=== PATIENT | female | born 1980 | race Caucasian/White ===

== ENCOUNTER 2019-04-02 17:14 | Emergency (ER) | payer SELFPAY ==
[2019-04-02] MEDS ORDERED: KETOROLAC TROMETHAMINE 60 MG/2 ML SDV IM ONE (17:31)
[2019-04-02] MEDS ORDERED: ONDANSETRON 4 MG TAB.RAPDIS PO ONE (17:31)
--- NOTE | 2019-04-02 17:33 | ER Document Report ---
ED Medical Screen (RME) - General Chief Complaint: Abdominal Pain Stated Complaint: ABDOMINAL PAIN,NAUSEA Time Seen by Provider: 04/02/19 17:28 Primary Care Provider: JULIANNA LANDIN [Primary Care Provider] - Follow up as needed Mode of Arrival: Ambulatory Information source: Patient Notes: 38-year-old female with history of diverticulitis presents emergency department with severe abdominal pain that started earlier today. Took ibuprofen without relief of symptoms. Also took a gas-x but that did not help either. Reports last bowel movement earlier today. Denies fever vomiting diarrhea. Denies pain with void reports her last flare with diverticulitis was over a year ago. I have greeted and performed a rapid initial assessment of this patient. A comprehensive ED assessment and evaluation of the patient, analysis of test results and completion of the medical decision making process will be conducted by additional ED providers. Dictation of this chart was performed using voice recognition software; therefore, there may be some unintended grammatical errors. TRAVEL OUTSIDE OF THE [place] IN LAST 30 DAYS: No - Related Data Allergies/Adverse Reactions: No Known Allergies Allergy (Verified 04/02/19 17:28) Past Medical History - Social History Chew tobacco use (# tins/day): No Frequency of alcohol use: None Drug Abuse: None Physical Exam - Vital signs Vitals: Temp Pulse Resp BP Pulse Ox 97.8 F 93 20 150/92 H 100 04/02/19 17:23 04/02/19 17:23 04/02/19 17:23 04/02/19 17:23 04/02/19 17:23 Course - Vital Signs Vital signs: Temp Pulse Resp BP Pulse Ox 97.8 F 93 20 150/92 H 100 04/02/19 17:23 04/02/19 17:23 04/02/19 17:23 04/02/19 17:23 04/02/19 17:23 Doctor's Discharge - Discharge Referrals: JULIANNA LANDIN [Primary Care Provider] - Follow up as needed
[2019-04-02 18:07] LABS: ABSOLUTE LYMPHOCYTES (AUTO) 1.6 10^3/uL (0.5-4.7); ABSOLUTE MONOCYTES (AUTO) 0.6 10^3/uL (0.1-1.4); BASOPHILS % (AUTO) 0.3 % (0-2); EOSINOPHILS % (AUTO) 0.3 % (0-6); HEMATOCRIT 47.1 % (36.0-47.0); HEMOGLOBIN 15.9 g/dL (12.0-15.5); LYMPHOCYTES % (AUTO) 13.3 % (13-45); MEAN CORPUSCULAR HEMOGLOBIN 31.7 pg (27.0-33.4); MEAN CORPUSCULAR HGB CONC 33.7 g/dL (32.0-36.0); MEAN CORPUSCULAR VOLUME 94 fl (80-97); MONOCYTES % (AUTO) 5.2 % (3-13); PLATELET COUNT 279 10^3/uL (150-450); RED CELL DISTRIBUTION WIDTH 13.4 % (11.5-14.0); SEGMENTED NEUTROPHILS % (AUTO) 80.9 % (42-78); TOTAL CELLS COUNTED % (AUTO) 100 %; WHITE BLOOD COUNT 12.3 10^3/uL (4.0-10.5)
[2019-04-02 18:25] LABS: APPEARANCE,URINE SLIGHTLY-CLOUDY; BILIRUBIN,URINE NEGATIVE (NEGATIVE); COLOR,URINE YELLOW; GLUCOSE, URINE NEGATIVE (NEGATIVE); KETONES,URINE NEGATIVE (NEGATIVE); LEUKOCYTE ESTERASE,URINE MODERATE (NEGATIVE); NITRITE,URINE NEGATIVE (NEGATIVE); PROTEIN,URINE NEGATIVE (NEGATIVE)
[2019-04-02 18:28] LABS: ALBUMIN 4.7 g/dL (3.5-5.0); ALKALINE PHOSPHATASE 81 U/L (38-126); ANION GAP 12 (5-19); ASPARTATE AMINO TRANSFERASE 29 U/L (14-36); BILIRUBIN,DIRECT 0.1 mg/dL (0.0-0.4); BILIRUBIN,TOTAL 0.5 mg/dL (0.2-1.3); BLOOD UREA NITROGEN 10 mg/dL (7-20); CALCIUM 9.9 mg/dL (8.4-10.2); CARBON DIOXIDE 28 mmol/L (22-30); CHLORIDE 104 mmol/L (98-107); GLUCOSE 112 mg/dL (75-110); POTASSIUM 4.9 mmol/L (3.6-5.0); TOTAL PROTEIN 8.2 g/dL (6.3-8.2)
[2019-04-02] MEDS ORDERED: NORMAL SALINE 1000 ML 1,000 ML IV ONE ×2 (19:21→22:41)
[2019-04-02] MEDS ORDERED: ONDANSETRON HCL INJ/PF 4 MG/2 ML SDV IV ONE (19:21)
[2019-04-02] MEDS ORDERED: MORPHINE SULFATE 10 MG/ML INJ IV ONE (19:21)
--- NOTE | 2019-04-02 19:23 | ER Document Report ---
ED GI/ - General Chief Complaint: Abdominal Pain Stated Complaint: ABDOMINAL PAIN,NAUSEA Time Seen by Provider: 04/02/19 17:28 Primary Care Provider: MORENO BENITEZ MD [ACTIVE STAFF] - Follow up as needed Mode of Arrival: Ambulatory Information source: Patient Notes: 38-year-old female with history of diverticulitis presents emergency department with severe mid-abdominal pain that started yesterday with worsening today. Took ibuprofen without relief of symptoms. Also took a gas-x but that did not help either. Reports last bowel movement earlier today. Denies fever vomiting diarrhea. Denies pain with void reports her last flare with diverticulitis was over a year ago. TRAVEL OUTSIDE OF THE [place] IN LAST 30 DAYS: No - Related Data Allergies/Adverse Reactions: No Known Allergies Allergy (Verified 04/02/19 17:28) Past Medical History - General Information source: Patient - Social History Smoking Status: Never Smoker Chew tobacco use (# tins/day): No Frequency of alcohol use: None Drug Abuse: None Family History: Reviewed & Not Pertinent Patient has suicidal ideation: No Patient has homicidal ideation: No GI Medical History: Reports: Hx Diverticulitis Past Surgical History: Reports: Hx Bowel Surgery - colostomy, hernia repari, Hx Section - x3, Hx Cholecystectomy, Hx Hysterectomy - Immunizations Immunizations up to date: Yes Review of Systems - Review of Systems Constitutional: No symptoms reported EENT: No symptoms reported Cardiovascular: No symptoms reported Respiratory: No symptoms reported Gastrointestinal: Abdominal pain, Nausea Genitourinary: No symptoms reported Female Genitourinary: No symptoms reported Musculoskeletal: No symptoms reported Skin: No symptoms reported Hematologic/Lymphatic: No symptoms reported Neurological/Psychological: No symptoms reported Physical Exam - Vital signs Vitals: Temp Pulse Resp BP Pulse Ox 97.8 F 93 20 150/92 H 100 04/02/19 17:23 04/02/19 17:23 04/02/19 17:23 04/02/19 17:23 04/02/19 17:23 - Notes Notes: PHYSICAL EXAMINATION: GENERAL: Well-appearing, well-nourished and in no acute distress. HEAD: Atraumatic, normocephalic. EYES: Pupils equal round and reactive to light, extraocular movements intact, conjunctiva are normal. ENT: Nares patent, oropharynx clear without exudates. Moist mucous membranes. NECK: Normal range of motion, supple without lymphadenopathy LUNGS: Breath sounds clear to auscultation bilaterally and equal. No wheezes rales or rhonchi. HEART: Regular rate and rhythm without murmurs ABDOMEN: Large round abdomen with multiple incisional scars including a midline incision. Palpable hernia. No guarding, no rebound. No masses appreciated. Female : No CVA tenderness. Musculoskeletal: Normal range of motion, no pitting or edema. No cyanosis. NEUROLOGICAL: Cranial nerves grossly intact. Normal speech, normal gait. Normal sensory, motor exams PSYCH: Normal mood, normal affect. SKIN: Warm, Dry, normal turgor, no rashes or lesions noted. Course - Re-evaluation Re-evalutation: Laboratory 04/02/19 04/02/19 04/02/19 17:41 17:41 17:41 WBC 12.3 H RBC 5.00 Hgb 15.9 H Hct 47.1 H MCV 94 MCH 31.7 MCHC 33.7 RDW 13.4 Plt Count 279 Lymph % (Auto) 13.3 Evans % (Auto) 5.2 Eos % (Auto) 0.3 Baso % (Auto) 0.3 Absolute Neuts (auto) 10.0 H Absolute Lymphs (auto) 1.6 Absolute Monos (auto) 0.6 Absolute Eos (auto) 0.0 Absolute Basos (auto) 0.0 Seg Neutrophils % 80.9 H Sodium 143.5 Potassium 4.9 Chloride 104 Carbon Dioxide 28 Anion Gap 12 BUN 10 Creatinine 0.92 Est GFR ( Amer) > 60 Est GFR (MDRD) Non-Af > 60 Glucose 112 H Calcium 9.9 Total Bilirubin 0.5 Direct Bilirubin 0.1 Neonat Total Bilirubin Not Reportable Neonat Direct Bilirubin Not Reportable Neonat Indirect Bili Not Reportable AST 29 ALT 31 Alkaline Phosphatase 81 Total Protein 8.2 Albumin 4.7 Urine Color YELLOW Urine Appearance SLIGHTLY-CLOUDY Urine pH 5.0 Ur Specific [place] 1.020 Urine Protein NEGATIVE Urine Glucose (UA) NEGATIVE Urine Ketones NEGATIVE Urine Blood SMALL H Urine Nitrite NEGATIVE Urine Bilirubin NEGATIVE Urine Urobilinogen 2.0 H Ur Leukocyte Esterase MODERATE H Urine WBC (Auto) 10 Urine RBC (Auto) 7 Urine Bacteria (Auto) TRACE Squamous Epi Cells Auto 1 Urine Mucus (Auto) RARE Urine Ascorbic Acid NEGATIVE 04/02/19 23:40 Dr. Figueroa has come to the bedside and personally evaluated the patient. Patient continues to appear well, nontoxic. Patient will be discharged home with strict ED return precautions, she will follow-up with the surgical clinic so that they can plan surgical repair of patient's hernia. - Vital Signs Vital signs: Temp Pulse Resp BP Pulse Ox 97.8 F 78 20 153/102 H 99 04/02/19 23:39 04/02/19 23:39 04/02/19 23:39 04/02/19 23:39 04/02/19 23:39 - Laboratory Result Diagrams: 04/02/19 17:41 04/02/19 17:41 Laboratory results interpreted by me: 04/02/19 04/02/19 04/02/19 17:41 17:41 17:41 WBC 12.3 H Hgb 15.9 H Hct 47.1 H Absolute Neuts (auto) 10.0 H Seg Neutrophils % 80.9 H Glucose 112 H Urine Blood SMALL H Urine Urobilinogen 2.0 H Ur Leukocyte Esterase MODERATE H Discharge - Discharge Clinical Impression: Ventral hernia Qualifiers: Obstruction and gangrene presence: without obstruction or gangrene Qualified Code(s): K43.9 - Ventral hernia without obstruction or gangrene Condition: Stable Disposition: HOME, SELF-CARE Additional Instructions: Please take medication as prescribed for nausea. It should cost around $10 with the coupon I have given you. Do your best to not strain. Eating a diet high in fiber. Call the surgical clinic Thursday to schedule an appointment, let them know you are in the emergency room. Return to the emergency department with new or worsening symptoms to include worsening abdominal pain, development of fever, persistent vomiting or any other symptoms concerning to you. Prescriptions: Promethazine HCl [Phenergan 25 mg Tablet] 1 - 2 tab PO Q6H PRN #15 tablet PRN Reason: Forms: Return to Work, Special Work Note Referrals: MORENO BENITEZ MD [ACTIVE STAFF] - Follow up as needed
--- NOTE | 2019-04-02 22:37 | RADIOLOGY REPORT (SQ) ---
EXAM DESCRIPTION: [facility]: CT ABDOMEN PELVIS WITH IV CONTRAST CLINICAL HISTORY: 38 years Female; abd pain/leukocytosis TECHNIQUE: CT of the abdomen and pelvis using intravenous contrast. All CT scans at this facility use dose modulation, iterative reconstruction, and/or weight based dosing when appropriate to reduce radiation dose to as low as reasonably achievable. COMPARISON: None. FINDINGS: Abdomen: Liver:No focal lesions. No intrahepatic ductal distention. Gallbladder: Surgically absent Pancreas:Within normal limits Spleen:Within normal limits Right kidney:No hydronephrosis. No focal lesion. Left kidney:No hydronephrosis. No focal lesion. Adrenal glands:Within normal limits Vascular structures:Within normal limits Pelvis: Small bowel: Multiple distended segments. Transition point is only ventral hernia to the left of midline at the level the umbilicus. The defect in the abdominal wall is 3.3 cm diameter. A segment of small bowel protrudes through the defect. There is no bowel wall thickening or enhancement. Distal small bowel is normal in caliber. Appendix:Within normal limits Colon:No distention or acute pericolonic edema. No free intraperitoneal fluid or air. Bones: No acute bone findings. Bladder: Unremarkable. Uterus is not identified. No significant adnexal enlargement. No pelvic adenopathy. IMPRESSION: 1. Small bowel obstruction due to incarcerated ventral hernia. 2. No perforation or abscess. 3. Previous cholecystectomy and hysterectomy.
[2019-04-02] MEDS ORDERED: PIPERACILLIN/TAZOBACTAM 3.375 GM VIAL IV ONE (22:46)
[2019-04-02 23:39] VITALS: BP 153/102
[2019-04-02] MEDS ORDERED: ONDANSETRON ODT 4 MG TAB (6 TAB/ER DISP) ONE (23:40)
[2019-04-02] MEDS ORDERED: ONDANSETRON ODT 4 MG TAB (6 TAB/ER DISP) PO PRN (23:40)
--- NOTE | 2019-04-03 00:05 | PDOC CONSULTATION ---
Consultation Consult Date: 04/02/19 Provider Consulted: GALO COLON Consult reason:: abdominal pain History of Present Illness Patient complains of: abdominal pain History of Present Illness: CHRIS ESPAÑA is a 38 year old female Presents the emergency department via ground rescue complaining of abdominal pain nausea no vomiting. Pain is a similar episode she is at the past but due to refractory nature after trying Gas-X and other [id number] medications, she came to the emergency department for further evaluation. She was found to have some abdominal tenderness and had a CT scan of the abdomen and pelvis with oral contrast which showed suggestive of incarcerated small bowel with small bowel obstruction. Surgery was consulted. Patient has a history of exploratory laparotomy, sigmoid colectomy, colostomy, colostomy takedown, and subsequent abdominal wall hernia repair without mesh from [id number] in [facility]. Last operation was in 2013. Has had intermittent abdominal pain since that time. Past Medical History GI Medical History: Reports: Diverticulitis Past Surgical History Past Surgical History: Colon resection, and colostomy, with reversal, [place], [place]; Hx of hernia repair, reportedly without mesh Past Surgical History: Reports: Section - x3, Cholecystectomy, Hysterectomy Social History Information Source: Patient Smoking Status: Never Smoker Electronic Cigarette use?: No Frequency of Alcohol Use: Rare Hx Recreational Drug Use: No Family History Family History: None, Reviewed & Not Pertinent Parental Family History Reviewed: No Children Family History Reviewed: No Sibling(s) Family History Reviewed.: No Medication/Allergy Home Medications: Promethazine HCl [Phenergan 25 mg Tablet] 1 - 2 tab PO Q6H PRN #15 tablet 04/02/19 Allergies/Adverse Reactions: No Known Allergies Allergy (Verified 04/02/19 17:28) Review of Systems Constitutional: PRESENT: as per HPI Eyes: ABSENT: visual disturbances Ears: ABSENT: hearing changes Cardiovascular: ABSENT: chest pain, dyspnea on exertion, edema, orthropnea, palpitations Respiratory: ABSENT: cough, hemoptysis Gastrointestinal: PRESENT: as per HPI, nausea Genitourinary: ABSENT: dysuria, hematuria Musculoskeletal: ABSENT: joint swelling Integumentary: ABSENT: rash, wounds Neurological: ABSENT: abnormal gait, abnormal speech, confusion, dizziness, focal weakness, syncope Psychiatric: ABSENT: anxiety, depression, homidical ideation, suicidal ideation Endocrine: ABSENT: cold intolerance, heat intolerance, polydipsia, polyuria Hematologic/Lymphatic: ABSENT: easy bleeding, easy bruising Physical Exam Vital Signs: Temp Pulse Resp BP Pulse Ox 97.8 F 93 20 150/92 H 100 04/02/19 17:23 04/02/19 17:23 04/02/19 17:23 04/02/19 17:23 04/02/19 17:23 Intake & Output 04/01/19 04/02/19 04/03/19 06:59 06:59 06:59 Intake Total 1000 Balance 1000 Weight 125.2 kg General appearance: PRESENT: no acute distress Head exam: PRESENT: normocephalic Eye exam: PRESENT: EOMI Mouth exam: PRESENT: dry mucosa Neck exam: PRESENT: full ROM Respiratory exam: PRESENT: clear to auscultation linda Cardiovascular exam: PRESENT: RRR Pulses: PRESENT: normal carotid pulses, normal radial pulses, normal femoral pulses, normal dorsalis pedis pul GI/Abdominal exam: PRESENT: other - Or significant tenderness abdomen examined well-healed scars consistent with previous surgery. There is eventration of the abdominal wall, localized area of bulging to the left and just above the umbilicus, unable to reduce chronically incarcerated small bowel ; no threatened skin or tenderness Rectal exam: PRESENT: deferred Extremities exam: PRESENT: full ROM Musculoskeletal exam: PRESENT: full ROM Neurological exam: PRESENT: altered, awake, oriented to person, oriented to time, oriented to situation Psychiatric exam: PRESENT: appropriate affect - scars, with intact skin; extensive ventral wall herniation, with incomplete reduction, likely chronically incarcerated; no peritoneal signs Results Laboratory Results: 04/02/19 17:41 04/02/19 17:41 04/02/19 04/02/19 04/02/19 17:41 17:41 17:41 WBC 12.3 H RBC 5.00 Hgb 15.9 H Hct 47.1 H MCV 94 MCH 31.7 MCHC 33.7 RDW 13.4 Plt Count 279 Seg Neutrophils % 80.9 H Sodium 143.5 Potassium 4.9 Chloride 104 Carbon Dioxide 28 Anion Gap 12 BUN 10 Creatinine 0.92 Est GFR ( Amer) > 60 Glucose 112 H Calcium 9.9 Total Bilirubin 0.5 AST 29 Alkaline Phosphatase 81 Total Protein 8.2 Albumin 4.7 Urine Color YELLOW Urine Appearance SLIGHTLY-CLOUDY Urine pH 5.0 Ur Specific [place] 1.020 Urine Protein NEGATIVE Urine Glucose (UA) NEGATIVE Urine Ketones NEGATIVE Urine Blood SMALL H Urine Nitrite NEGATIVE Ur Leukocyte Esterase MODERATE H Urine WBC (Auto) 10 Urine RBC (Auto) 7 Impressions: Abdomen/Pelvis CT 04/02/19 19:20 IMPRESSION: 1. Small bowel obstruction due to incarcerated ventral hernia. 2. No perforation or abscess. 3. Previous cholecystectomy and hysterectomy. Assessment & Plan - Diagnosis (1) Ventral hernia Qualifiers: Obstruction and gangrene presence: without obstruction or gangrene Qualified Code(s): K43.9 - Ventral hernia without obstruction or gangrene Is this a current diagnosis for this admission?: Yes Plan: Impression: Chronically incarcerated abdominal wall hernia, recurrent, patient with previous exploratory laparotomy sigmoid colectomy colostomy colostomy takedown and hernia repair; the patient does not have an acute abdomen, and does not have significant evidence of obstruction as she is not vomiting. CT scan of the abdomen demonstrates a chronic ventral wall hernia, with a loop of chronically incarcerated small bowel with some surrounding edema. Distal small bowel is collapsed. Recommendations: 1. Patient does not have an acute abdomen, and clinically does not appear to be obstructed. She does not need admission to the hospital at this time. 2. I suggested she stay stool softener, and use of abdominal binder. 3. I suggested she follow-up with 1 of my colleagues who perform abdominal wall reconstruction; I told her that she would be a candidate for such repair only if she stopped smoking. Advised her the. 4. I have discussed the above with BRYCE Dill (2) Obesity Is this a current diagnosis for this admission?: Yes (3) Smoker Is this a current diagnosis for this admission?: Yes - Time Time Spent: 30 to 50 Minutes Smoking Cessation Education: 3 to 10 minutes Medications reviewed and adjusted accordingly: Yes Anticipated discharge: Home
== END 2019-04-02 23:52 | disposition home or self-care (01) ==
LOC: ER 17:14
DX: K43.9 Ventral hernia without obstruction or gangrene (principal); R10.9 Unspecified abdominal pain; R11.0 Nausea; Z90.710 Acquired absence of both cervix and uterus; Z90.49 Acquired absence of other specified parts of digestive tract
CPT/HCPCS: 36415; 85025; 80053; 81001; 74177; J1885; S0119; J2270; J2405; J7030; 96361; 96372; 96374; 96375; 99284

== ENCOUNTER 2019-04-05 08:16 | Emergency (ER) | payer SELFPAY ==
[2019-04-05 08:23] VITALS: BP 144/88
[2019-04-05] MEDS ORDERED: MORPHINE SULFATE 10 MG/ML INJ IV ONE (09:09)
--- NOTE | 2019-04-05 09:09 | ER Document Report ---
ED Medical Screen (RME) - General Chief Complaint: Abdominal Pain Stated Complaint: ABDOMINAL PAIN Time Seen by Provider: 04/05/19 09:04 Notes: Patient is a 38-year-old female who presents to the emergency department with a chief complaint of abdominal pain. Patient states that she had abdominal pain on Thursday and was seen here in the emergency department. At that time, she had a small bowel obstruction due to an incarcerated ventral hernia. The surgeon consulted on her that day. She was referred to surgery and she has her initial appointment today. Patient states that she has not had a bowel movement since Thursday. States that the pain is now going from her upper abdomen down to her lower abdomen. Patient states that she is even having a hard time passing gas. Exam: Generalized abdominal tenderness. I have greeted and performed a rapid initial assessment of this patient. A comprehensive ED assessment and evaluation of the patient, analysis of test results and completion of medical decision making process will be conducted by an additional ED providers. TRAVEL OUTSIDE OF THE [place] IN LAST 30 DAYS: No - Related Data Allergies/Adverse Reactions: No Known Allergies Allergy (Verified 04/05/19 08:52) Past Medical History - Social History Chew tobacco use (# tins/day): No Frequency of alcohol use: None Drug Abuse: None GI Medical History: Reports: Hx Diverticulitis Past Surgical History: Reports: Hx Bowel Surgery - colostomy, hernia repari, Hx Section - x3, Hx Cholecystectomy, Hx Hysterectomy - Immunizations Immunizations up to date: Yes Physical Exam - Vital signs Vitals: Temp Pulse Resp BP Pulse Ox 97.7 F 79 16 144/88 H 100 04/05/19 08:22 04/05/19 08:22 04/05/19 08:22 04/05/19 08:22 04/05/19 08:22 Course - Vital Signs Vital signs: Temp Pulse Resp BP Pulse Ox 97.7 F 79 16 144/88 H 100 04/05/19 08:22 04/05/19 08:22 04/05/19 08:22 04/05/19 08:22 04/05/19 08:22
[2019-04-05] MEDS ORDERED: KETOROLAC TROMETHAMINE INJ/PF 30 MG/1 ML SDV IV ONE (09:42)
[2019-04-05] MEDS ORDERED: ONDANSETRON HCL INJ/PF 4 MG/2 ML SDV IV ONE (09:42)
[2019-04-05] MEDS ORDERED: NORMAL SALINE 1000 ML 1,000 ML IV ONE (09:50)
[2019-04-05 09:59] LABS: ABSOLUTE EOSINOPHILS # (AUTO) 0.1 10^3/uL (0.0-0.6); ABSOLUTE LYMPHOCYTES (AUTO) 1.9 10^3/uL (0.5-4.7); ABSOLUTE MONOCYTES (AUTO) 0.4 10^3/uL (0.1-1.4); ABSOLUTE NEUT (AUTO) 3.5 10^3/uL (1.7-8.2); BASOPHILS % (AUTO) 0.4 % (0-2); EOSINOPHILS % (AUTO) 1.5 % (0-6); HEMATOCRIT 41.6 % (36.0-47.0); HEMOGLOBIN 14.3 g/dL (12.0-15.5); LYMPHOCYTES % (AUTO) 32.2 % (13-45); MEAN CORPUSCULAR HEMOGLOBIN 32.3 pg (27.0-33.4); MEAN CORPUSCULAR HGB CONC 34.3 g/dL (32.0-36.0); MEAN CORPUSCULAR VOLUME 94 fl (80-97); MONOCYTES % (AUTO) 7.2 % (3-13); PLATELET COUNT 231 10^3/uL (150-450); RED BLOOD COUNT 4.42 10^6/uL (3.72-5.28); RED CELL DISTRIBUTION WIDTH 13.3 % (11.5-14.0); SEGMENTED NEUTROPHILS % (AUTO) 58.7 % (42-78); TOTAL CELLS COUNTED % (AUTO) 100 %
--- NOTE | 2019-04-05 10:04 | ER Document Report ---
ED GI/ - General Chief Complaint: Abdominal Pain Stated Complaint: ABDOMINAL PAIN Time Seen by Provider: 04/05/19 09:04 Notes: Ms. London is a 38 yo f w/ PMH of diverticulitis with perforation status post partial colectomy, history of colostomy with reversal in 2008 presenting to ED for abdominal pain. States that she was here several days ago had a CT at which point she was told she had a ventral abdominal hernia and a small obstruction in the bowel. She states that they were initially planning on keeping her and then after being evaluated by the surgeon, it was noted that her abdominal wall is significantly thin and she would require reconstructive surgery. Patient was then discharged with instructions to follow-up in the office. She states that she had an appointment today for 2:[address] Nolan. She however has been unable to have any bowel movement since Thursday. She states that she is passed gas 2 or 3 times. She has had ongoing nausea but it is relieved with the Phenergan and Zofran that she was given. She endorses subjective chills without any documented fevers. No chest pain, cough, shortness of breath or headaches. She does endorse nausea with some dry heaving, no vomiting or diarrhea. TRAVEL OUTSIDE OF THE [place] IN LAST 30 DAYS: No - Related Data Allergies/Adverse Reactions: No Known Allergies Allergy (Verified 04/05/19 08:52) Past Medical History - Social History Smoking Status: Current Every Day Smoker Chew tobacco use (# tins/day): No Frequency of alcohol use: None Drug Abuse: None Family History: None, Reviewed & Not Pertinent Patient has suicidal ideation: No Patient has homicidal ideation: No GI Medical History: Reports: Hx Diverticulitis Past Surgical History: Reports: Hx Bowel Surgery - colostomy, hernia repari, Hx Section - x3, Hx Cholecystectomy, Hx Hysterectomy - Immunizations Immunizations up to date: Yes Review of Systems - Review of Systems Constitutional: See HPI EENT: No symptoms reported Cardiovascular: No symptoms reported Respiratory: No symptoms reported Gastrointestinal: See HPI Genitourinary: No symptoms reported Female Genitourinary: No symptoms reported Musculoskeletal: No symptoms reported Skin: No symptoms reported Hematologic/Lymphatic: No symptoms reported Neurological/Psychological: No symptoms reported Physical Exam - Vital signs Vitals: Temp Pulse Resp BP Pulse Ox 97.7 F 79 16 144/88 H 100 04/05/19 08:22 04/05/19 08:22 04/05/19 08:22 04/05/19 08:22 04/05/19 08:22 Interpretation: Hypertensive - General General appearance: Appears well, Alert - HEENT Head: Normocephalic, Atraumatic Eyes: Normal Pupils: PERRL - Respiratory Respiratory status: No respiratory distress Chest status: Nontender Breath sounds: Normal Chest palpation: Normal - Cardiovascular Rhythm: Regular Heart sounds: Normal auscultation Murmur: No - Abdominal Inspection: Normal Distension: No distension Bowel sounds: Normal Tenderness: Tender - periumbilical and epigastric pain. No: McBurney's point, Marks's sign, Guarding, Rebound Organomegaly: No organomegaly - Back Back: Normal, Nontender - Extremities General upper extremity: Normal inspection, Nontender, Normal color, Normal ROM, Normal temperature General lower extremity: Normal inspection, Nontender, Normal color, Normal ROM, Normal temperature, Normal weight bearing. No: Fred's sign - Neurological Neuro grossly intact: Yes Cognition: Normal Orientation: AAOx4 [place] Coma Scale Eye Opening: Spontaneous Javi Coma Scale Verbal: Oriented Javi Coma Scale Motor: Obeys Commands [place] Coma Scale Total: 15 Speech: Normal Motor strength normal: LUE, RUE, LLE, RLE Sensory: Normal - Psychological Associated symptoms: Normal affect, Normal mood - Skin Skin Temperature: Warm Skin Moisture: Dry Skin Color: Normal Course - Re-evaluation Re-evalutation: Patient is generally well-appearing and nontoxic. Initial vitals notable for mildly elevated blood pressure. Differential diagnosis includes small bowel obstruction, obstipation, diverticulitis, constipation, bowel ischemia (less likely) 04/05/19 10:06 CBC and CMP within normal limits. Lipase also within normal limits. Lactic acid is low and there was a low suspicion to begin with with bowel ischemia given the patient's soft abdomen. Although examination is limited secondary to body habitus. However given the patient's recent possible obstruction, and her inability to defecate, plan to obtain repeat CT. 04/05/19 14:02 Patient comfortably asleep. Shows evidence of UTI with many WBCs, positive leukocyte esterase and a small amount of blood. Patient given ceftriaxone here in ED prior to discharge. Patient will be discharged with Keflex. Recommended she still go to her surgical appointment today at 230 for a consultation regarding her abdominal wall hernia. Patient given return precautions. She was also recommended to start taking stool softeners with senna plus. Patient s truck to stay well-hydrated. She requested a prescription for Diflucan as she gets yeast infections often after a course of antibiotics. Patient provided with prescription. - Vital Signs Vital signs: Temp Pulse Resp BP Pulse Ox 97.7 F 79 16 144/88 H 100 04/05/19 08:22 04/05/19 08:22 04/05/19 08:22 04/05/19 08:22 04/05/19 08:22 - Laboratory Result Diagrams: 04/05/19 09:40 04/05/19 09:40 Laboratory results interpreted by me: 04/05/19 04/05/19 09:25 12:30 Lactic Acid 0.6 L Urine Blood MODERATE H Leukocyte Esterase Rfl LARGE H Discharge - Discharge Clinical Impression: Constipation, UTI (urinary tract infection), Abdominal hernia, Abdominal pain Condition: Good Disposition: HOME, SELF-CARE Instructions: Abdominal Pain ([facility]), Cephalexin ([facility]), Constipation ([facility]), Urinary Tract Infection ([facility]) Additional Instructions: It is important that you follow-up with your surgeon as your scheduled appointment. Make sure you take the full course of antibiotics for urinary tract infection. I would recommend that you stick to a bland diet. I would also recommend that you start using stool softener such as senna plus. Prescriptions: Fluconazole [Diflucan] 200 mg PO DAILY #1 tablet Cephalexin Monohydrate [Keflex 500 mg Capsule] 500 mg PO TID 7 Days #21 capsule Sennosides/Docusate Sodium [Senna Plus 8.6-50 mg Softgel] 1 each PO DAILY #30 capsule Forms: Return to Work
[2019-04-05 10:25] LABS: APPEARANCE,URINE CLOUDY; BILIRUBIN,URINE NEGATIVE (NEGATIVE); COLOR,URINE YELLOW; GLUCOSE, URINE NEGATIVE (NEGATIVE); KETONES,URINE NEGATIVE (NEGATIVE); PROTEIN,URINE NEGATIVE (NEGATIVE); URINE SPECIFIC GRAVITY 1.021; UROBILINOGEN,URINE NEGATIVE mg/dL (<2.0)
[2019-04-05 10:28] LABS: ALBUMIN 3.7 g/dL (3.5-5.0); ALKALINE PHOSPHATASE 106 U/L (38-126); ANION GAP 7 (5-19); ASPARTATE AMINO TRANSFERASE 36 U/L (14-36); BILIRUBIN,DIRECT 0.1 mg/dL (0.0-0.4); BILIRUBIN,TOTAL 0.3 mg/dL (0.2-1.3); BLOOD UREA NITROGEN 8 mg/dL (7-20); CARBON DIOXIDE 28 mmol/L (22-30); CHLORIDE 105 mmol/L (98-107); GLUCOSE 100 mg/dL (75-110); POTASSIUM 3.8 mmol/L (3.6-5.0); TOTAL PROTEIN 6.8 g/dL (6.3-8.2)
--- NOTE | 2019-04-05 13:03 | RADIOLOGY REPORT (SQ) ---
EXAM DESCRIPTION: CT ABD/PELVIS WITH IV ORAL COMPLETED DATE/TIME: 04/05/2019 12:40 pm REASON FOR STUDY: abd pain COMPARISON: 04/02/2019 TECHNIQUE: CT scan of the abdomen and pelvis performed using helical scanning technique with dynamic intravenous contrast injection. Patient was given oral contrast. Images reviewed with lung, soft ti ssue, and bone windows. Reconstructed coronal and sagittal MPR images reviewed. Delayed images for ev aluation of the urinary system also acquired. All images stored on PACS. All CT scanners at this facility use dose modulation, iterative reconstruction, and/or weight based d osing when appropriate to reduce radiation dose to as low as reasonably achievable (ALARA). [facility]: Dose Right [facility]: CareDose [facility]: Dose Right [facility]: Teradose 4D [facility]: [employer] CONTRAST TYPE AND DOSE: contrast/concentration: Isovue 350.00 mg/ml; Total Contrast Delivered: 99.0 ml; Total Saline Delivered: 66.0 ml RENAL FUNCTION: None required. The patient is less than 50 years old. RADIATION DOSE: CT Rad equipment meets quality standard of care and radiation dose reduction techniq ues were employed. CTDIvol: 20.9 - 21.1 mGy. DLP: 2347 mGy-cm.. LIMITATIONS: None. FINDINGS: LOWER CHEST: No significant findings. No nodules or infiltrates. LIVER: Normal size. No masses. No dilated ducts. SPLEEN: Normal size. No focal lesions. PANCREAS: No masses. No significant calcifications. No adjacent inflammation or peripancreatic fluid collections. Pancreatic duct not dilated. GALLBLADDER: Surgically absent. ADRENAL GLANDS: No significant masses or asymmetry. RIGHT KIDNEY AND URETER: No solid masses. No significant calcifications. No hydronephrosis or hyd roureter. LEFT KIDNEY AND URETER: No solid masses. No significant calcifications. No hydronephrosis or hydr oureter. AORTA AND VESSELS: No aneurysm. No dissection. Renal arteries, SMA, celiac without stenosis. RETROPERITONEUM: No retroperitoneal adenopathy, hemorrhage or masses. BOWEL AND PERITONEAL CAVITY: No focal bowel wall thickening. No evidence of intestinal obstruction. Persistent small bowel and fat containing left paracentral abdominal wall hernia. Contrast noted th roughout the colon. APPENDIX: Normal in caliber. Retrocecal in location. PELVIS: No mass. No free fluid. Normal bladder. Status post hysterectomy. ABDOMINAL WALL: Unchanged small bowel and fat containing left paracentral hernia with a 3.2 cm apert ure. Diastases recti. No soft tissue masses. BONES: No acute bony abnormality. No suspicious osseous lesions. OTHER: No other significant finding. IMPRESSION: 1. Unchanged left anterior abdominal wall paracentral hernia containing fat and small b owel. No evidence of intestinal obstruction on this exam. 2. No other evidence of acute intra-abdominal/pelvic process. Chronic findings as above. TECHNICAL DOCUMENTATION: JOB ID: [id number] Quality ID # [id number]: Final reports with documentation of one or more dose reduction techniques (e.g., Au tomated exposure control, adjustment of the mA and/or kV according to patient size, use of iterative reconstruction technique) 2010 [employer]- All Rights Reserved Reading location - IP/workstation name: [email or web address]
[2019-04-05] MEDS ORDERED: CEFTRIAXONE INJ 1000 MG VIAL IV ONE (13:51)
== END 2019-04-05 14:15 | disposition home or self-care (01) ==
LOC: ER 08:16
DX: N39.0 Urinary tract infection, site not specified (principal); K59.00 Constipation, unspecified; K43.9 Ventral hernia without obstruction or gangrene; R10.13 Epigastric pain; R10.33 Periumbilical pain; R11.0 Nausea; I10 Essential (primary) hypertension; F17.200 Nicotine dependence, unspecified, uncomplicated; Z87.19 Personal history of other diseases of the digestive system; Z90.49 Acquired absence of other specified parts of digestive tract
CPT/HCPCS: 36415; 83605; 83690; 85025; 80053; 81001; 74177; J1885; J0696; J2405; J7030; 87086